=== PATIENT | female | born 1960 | race African-American/Black ===

== ENCOUNTER → 2016-09-07 13:16 | Emergency (ER) | payer OTHER ==
--- NOTE | ~2016-09-07 | CR72 ---
[facility] A Service of [facility] & [facility] RADIOLOGY TEXT RESULTS PATIENT: BOOM PEDRESON LOCATION: IGOR : 60 UNIT #: [id number] AGE: [address]: Marika ER Doctor SEX: F ORDER DR: [id number] [facility] [address]. [place], [place] [address] [id number] E MR#: [id number] Acc #: [id number] NAME: BOOM PEDERSON : 1960 SEX: F STUDY DATE/TIME: 09/07/2016 12:54 UNIT: IGOR ROOM: STUDY DESCRIPTION: CR Chest Single View Portable Attending Physician: Er Doctor Marika Ordering Physician: Ed Doctor [id number] Shannan jim Primary Care Physician: Cristiane Formerly [facility] MEDICAL IMAGING REPORT This report is preliminary unless electronic signature is present EXAM Portable chest INDICATIONS 56-year-old female with chest pain and cough for 3 days. COMPARISON 04/15/2015 FINDINGS Lungs are well expanded. No airspace consolidation. Heart size is normal. Atherosclerotic calcification aorta. Bilateral carotid calcifications. IMPRESSION No active disease. Dictated by... Darryl Solares M.D. THIS IS AN ELECTRONICALLY VERIFIED REPORT Darryl Solares M.D. at 09/07/2016 4:43 PM Veronica TD: 09/07/2016 13:55 JOB #: [id number] MEDICAL IMAGING REPORT Page 1 of 1 COPY
--- NOTE | ~2016-09-07 | EKG ---
PATIENT: BOOM PEDERSON UNIT #: [id number] Ventricular Rate: 77 BPM Atrial Rate: 77 BPM P-R Interval: 140 ms QRS Duration: 74 ms Q-T Interval: 416 ms QTC Calculation(Bezet): 470 ms P Angela: 64 degrees Calculated R Angela: 26 degrees Calculated T Angela: 31 degrees Diagnosis Line: Normal sinus rhythm Diagnosis Line: Normal ECG Diagnosis Line: When compared with ECG of 13-OCT-2011 13:35, Diagnosis Line: No significant change was found Diagnosis Line: Confirmed by APARNA LOREDO MD ([id number]) on Diagnosis Line: 09/08/2016 6:47:41 AM INTERPRETING KRISSY SUN
[~2016-09-07 13:16] MED LIST: ALBUTEROL17 GM INH; AMOXIL500 MG PO; ANUCORT-HC25 MG/SUPP PR; ANUSOL-HC21 GM PR; ASPIRIN PO; BACTRIM DS TABL1 TA1 PO; CIPRO PO; DIAZEPAM PO; DIOVAN PO; FLAGYL PO; FLEXERIL10 MG PO; HCTZ PO; IBUPROFEN800 MG PO; LASIX20 MG PO; LISINOPRIL PO; LOPRESSOR PO; MEDROL PO; MEDROL4 MG/DOSE- PO; MOBIC PO; NAPROSYN500 MG PO; NEURONTIN300 MG PO; NORCO 5/325 TAB1 TAB PO; NORVASC PO; PATIENT'S PHARMACY; PREDNISONE PO; ROBAXIN 750750 M1 PO; VICODIN PO
== END | disposition left against medical advice (07) ==
LOC: CED 13:16
DX: Z53.21 Procedure and treatment not carried out due to patient leaving prior to being seen by health care provider (principal)
CPT/HCPCS: 71010; 93005